=== PATIENT | female | born 1935 | race Caucasian/White ===

== ENCOUNTER 2024-02-12 07:56 | Inpatient (IN) | payer MEDICARE, OTHER ==
[2024-02-12] VITALS (29 sets, daily range): BP systolic 75–132; BP diastolic 59–97
[~2024-02-12] VITALS: Ht 165.1 cm; Wt 86.8 kg
[2024-02-12] MEDS ORDERED: OXYBUTYNIN CHLOR5 MG PO (08:11)
[2024-02-12] MEDS ORDERED: CEFTRIAXONE/SODIUM CHLORIDE 2 GM/100 ML PIGGYBACK IV ONE (08:15)
[2024-02-12] MEDS ORDERED: SODIUM CHLORIDE 0.9% 1,000 ML IV ONE ×2 (08:15→08:30)
[2024-02-12 08:26] LABS: BASOPHILS 0.4 % (0-2); EOSINOPHILS 2.5 % (0-6); HEMATOCRIT 41.9 % (35.0-50.0); LYMPHOCYTES 18.1 % (24-44); MCH 30.7 (27-36); MCHC 33.5 g/dl (30-36); MCV 91.8 fl (81-99); MONOCYTES 5.9 % (0-12); NEUTROPHILS 73.1 % (39-80); PLATELET COUNT 177 K/uL (140-440); RBC 4.57 M/ul (4.3-5.7); RDW 13.6 (10.5-15.0)
[2024-02-12 08:27] LABS: BILIRUBIN, URINE NEGATIVE (negative); BLOOD/HGB, URINE NEGATIVE (Negative); KETONE, URINE TRACE (Negative); LEUK ESTERASE, URINE NEGATIVE (negative); NITRITE, URINE NEGATIVE (negative); PH, URINE 6.5 (5-7)
[2024-02-12] MEDS ORDERED: LORazepam 2 MG/ML VIAL IV ONE ×2 (08:30→09:30)
[2024-02-12] MEDS ORDERED: NOREPINEPHRINE BITARTRATE 250 ML IV SCH (08:30)
[2024-02-12 08:41] LABS: ALBUMIN 3.5 g/dL (3.4-5.0); ALBUMIN/GLOBULIN RATIO 0.97 (1.1-2.4); BILIRUBIN, TOTAL 0.8 ng/dL (0.2-1.0); BUN/CREATININE RATIO 11.76 (6.0-28.6); CALCIUM 9.5 mg/dL (8.5-10.1); CREATININE, SERUM 1.7 mg/dL (0.55-1.02); PROTEIN, TOTAL 7.1 g/dL (6.4-8.2)
[2024-02-12 08:45] LABS: LACTIC ACID, BLOOD 3.4 mmol/L (0.4-2.0)
[2024-02-12 09:38] LABS: INFLUENZA B NAA NEGATIVE (NEGATIVE); RESPIRATORY SYNCYTIAL VIR NAA NEGATIVE (NEGATIVE)
[2024-02-12] MEDS ORDERED: fentaNYL citrate 100 MCG/2 ML VIAL IV PRN (10:00)
[2024-02-12] MEDS ORDERED: SODIUM CHLORIDE 0.9% 1,000 ML IV SCH ×2 (12:00→12:30)
[2024-02-12] MEDS ORDERED: IBLOOD GLUCOSE TEST STRIP 1 EA TEST XX PRN (12:30)
[2024-02-12] MEDS ORDERED: ondansetron HCL 4 MG/2 ML VIAL IV PRN (12:30)
[2024-02-12] MEDS ORDERED: DEXTROSE 5% 1,000 ML IV PRN (12:30)
[2024-02-12] MEDS ORDERED: ACETAMINOPHEN 325 MG TAB PO PRN (12:30)
[2024-02-12] MEDS ORDERED: DEXTROSE 50% 50 ML SYR IV PRN ×2 (12:30)
[2024-02-12] MEDS ORDERED: GLUCAGON,HUMAN RECOMBINANT 1 MG/ML VIAL SUB-Q PRN (12:30)
[2024-02-12] MEDS ORDERED: LIDOCAINE 2% VISCOUS 6 ML SYR TOP ONE (13:30)
--- NOTE | 2024-02-12 13:30 | NUR ---
PATIENT ARRIVED TO THE CCU ROOM 128. PATIENT VERY AGITATED AND ARRIVED IN RESTRAINTS. PER MD WILL RESUME RESTRAINTS. PATIENT ON LEVOPHED GTT FOR BP SUPPORT.
[2024-02-12] MEDS ORDERED: HEParin SOD (PORCINE) 5,000 UNIT/ML VIAL IV ONE ×2 (14:00→17:00)
[2024-02-12] MEDS ORDERED: HEPARIN SOD,PORK IN 0.45% NACL 500 ML IV SCH ×2 (14:00→17:00)
--- NOTE | 2024-02-12 14:22 | NUR ---
medications reconciled
[2024-02-12 14:30] LABS: BASOPHILS 0.1 % (0-2); EOSINOPHILS 0.1 % (0-6); HEMATOCRIT 38.8 % (35.0-50.0); HEMOGLOBIN 12.8 g/dL (12.0-18.0); LYMPHOCYTES 4.7 % (24-44); MCH 30.6 (27-36); MCV 92.6 fl (81-99); MONOCYTES 4.8 % (0-12); NEUTROPHILS 90.3 % (39-80); PLATELET COUNT 178 K/uL (140-440); RBC 4.19 M/ul (4.3-5.7); RDW 13.3 (10.5-15.0)
--- NOTE | 2024-02-12 14:30 | NUR ---
THIS RN HAS ZEUS IN AT THE BEDSIDE AND UNABLE TO LEAVE SINCE ADMISSION. PATIENT IS VERY RESTLESS AND AGITATED. PATIENT TRYING TO CLIMB OUT OF BED, PULL AT TUBES, WIRES, AND BELONGINGS. HAMILTON CATHETER PLACED D/T PATIENT HAVING NO URINE OUTPUT AND BLADDER SCAN COMPLETE WITH 388 PRESENT IN BLADDER. WHEN HAMILTON PLACED IT WAS 325 EMPTIED. HAMILTNO TEMP PROBE WAS PLACED D/T PATIENTS TEMP BEING 96 TEMPORALLY ON ARRIVAL AND UNABLE TO GET AXILLARY TEMP. CORE TEMP NOTED TO BE 95.7. BEAR HUGGER PLACED UNDER PATIENTS SHEET. WARM BLANKET APPLIED. DIFFICULT TO TRY TO KEEP WARM BECAUSE PATIENT CONTINUOUSLY PULLS ALL BLANKETS AND GOWN OFF. PATIENT IS NOT ABLE TO FOLLWO COMMANDS. PATIENT STATES "HELP ME". REORIENTED PATIENT MULTIPLE TIMES WITH PATIENT UNABLE TO FOLLOW COMMANDS. PATIENTS IV IS NOW LEAKING A TTHIS TIME. PAUSED IV FLUIDS. WILL ATTEMPTS NEW IV.
[2024-02-12 14:37] LABS: PARTIAL THROMBOPLASTIN TIME 27.2 Sec (22.9-41.3)
[2024-02-12 14:38] LABS: INR 1.22 (0.80-1.30); PROTIME 14.6 Sec (11.2-14.2)
--- NOTE | 2024-02-12 15:30 | NUR ---
THIS RN BACK FROM BREAK AND PATIENT IS VERY RESTLESS WITH MULTIPLE STAFF AT THE BEDSIDE TO PROVIDED SAFETY FOR PATIENT. PATIENT AGITATED AND RESTLESS TRYIGN TO PULL AT STUFF AND GET OUT OF BED. MD WAS NOTIFIED AND AT THE BEDSIDE. NEW ORDERS FOR PRECEDEX GTT. PATIENT HAS NEW IV IN LEFT UPPER ARM. PATIENTS PRIOR IV LEAKING AND DCD AT THIS TIME. PATIENT DOES NOT FOLLOW ANY COMMANDS. PATIENT AGITATED AND CONFUSED. AWAITING ARRIVAL OF PATIETNS FAMILY.
--- NOTE | 2024-02-12 15:35 | NUR ---
PATIENT STARTED TO DFRY HEAVE. PRN ZOFRAN WAS GIVEN AT THAT TIME. PATIENT AWAKE AND TRYING TO PULL AT TUBES/ WIRES AND GET OUT OF BED. PATIENT REMAINS WITH RESTRAINTS FOR SAFETY. MULTIPLE STAFF HAD HAD TO BE AT PATIENTS BEDSIDE TO ASSIST WITH CARES. MD UPDATED THAT PATIENT LOST IV ACESS AGAIN D/T LEAKING SITES. HELD HEAPRIN BOLUS AND INFUSION AT THIS TIME. WILL WAIT FOR 1600 LABS AND REEVALUTE AT THAT TIME. PATIENT HAS LOST MULTIPLE IVS DT LEAKING AND PATIENT PULLING IVS. AWAITING PATIETNS FAMILY TO ARRIVE FOR FURTHER PLAN OF CARE.
--- NOTE | 2024-02-12 16:49 | NUR ---
MD UPDATED ON PATIENT CRITICAL LABS AND NEW ORDER PLACED FOR EKG. MD WILL CALL AND UPDATE PATIENTS FAMILY AND ADRESS PLAN OF CARE. PER MD CAN START HEPARIN BOLUS AND GTT AT THIS TIME.
[2024-02-12] MEDS ORDERED: INSULIN LISPRO 100 UNIT/ML ML SUB-Q SCH (17:00)
[2024-02-12] MEDS ORDERED: IBLOOD GLUCOSE TEST STRIP 1 EA TEST VI SCH (17:00)
--- NOTE | 2024-02-12 17:56 | NUR ---
PATIENTS SON KAL ARRIVED AND UPDATED ON PLAN OF CARE WITH THIS RN AND MD VASQUEZ. PATIENT CURRENTLY ON NONREBREATHER MASK AT 15L. PATIENT ON LEVOPHED, PRECEDEX, AND HEPARIN GTT. PATIENTS SON IN AT THE BEDSIDE. ADVANCE DIRECTIVE COPIED AND PLACED IN PATIENTS CHART.
--- NOTE | 2024-02-12 19:35 | NUR ---
CALLED MD VASQUEZ AND ROSEMARIE THAT PATIENTS SON KAL WAS ASKING ABOUT COMFORT MEASURES, BUT STAYING THE CURRENT COURSE UNTIL HIS BROTHERS CAN MAKE IT IN THE AM. PATIENTS SON ASKED IF SHE WAS NOT ON THE CURRENT MEDICATIONS THAT SHE IS RECIEVING IF SHE WOULD PASS. EDUCATED HIM OF HOW THE NOREPINEPHRINE AND OXYGEN ARE WORKING FOR HER. PATIENT HAS HAD A DIFFICULT TIME MAINTAINING HER AIRWAY AT TIMES. PATIENT IS CURRENTLY REQUIRING NONREBREATHER TO MAINTIN SPO2 >90%. ALSO UPDATED THAT PATIENTS URINE IS DECREASED AT THIS TIME. MD WILL BE DOWN TO TALK WITH PATIENTS FAMILY.
--- NOTE | 2024-02-12 20:24 | NUR ---
REPORT RECEIVED FROM VIOLETTA FREY. BEDSIDE PUMP/INFUSION/RESTRAINT HAND OFF COMPLETED. PATIENT SNORING, REPOSITIONED AND PARTIAL LINEN CHANGE COMPLETED. SON KAL AT BEDSIDE. DR. MORALES IN AND UPDATED HIM ON POC. PATIENT ATTEMPTING TO PULL AT RESTRAINTS. PRECEDEX INCREASED TO 0.8 PER FLOWSHEET.
[2024-02-12] MEDS ORDERED: ATROPINE SULFATE 1% OPTH DROPS SL PRN (21:30)
[2024-02-12] MEDS ORDERED: ARTIFICIAL TEARS 15 ML BTL OU PRN (21:30)
--- NOTE | 2024-02-12 22:23 | NUR ---
CATHETER CARE COMPLETED. PATIENT MINIMALLY RESPONSIVE TO CARES. ATTEMPTS TO PULL AT RESTRAINTS BUT CALMS EASILY. HAMILTON CATHETER OUTPUT 15ML. REPOSITIONED FOR COMFORT. IV LINES REMAIN PATENT. PATIENT DOES NOT OPEN EYES TO NAME OR CARES AT THIS TIME.
--- NOTE | 2024-02-12 23:02 | EKG ---
[facility] [address] [place], [place] [address] Signed Sinus tachycardia Left axis deviation Right bundle branch block Inferior infarct , age undetermined Abnormal ECG No previous ECGs available Confirmed by Darnell Morales MD () on 02/12/2024 11:01:55 PM Electronically Signed By: DARNELL MORALES MD 02/12/242301 PATIENT NAME: ОЛЬГА DIAS Electrocardiogram DATE OF : [birth year] PHYSICIAN: DARNELL MORALES MD REPORT #: [id number] REPORT IS CONFIDENTIAL AND NOT TO BE RELEASED WITHOUT AUTHORIZATION
--- NOTE | 2024-02-12 23:04 | EKG ---
[facility] [address] [facility] [place] [address] Signed Normal sinus rhythm Inferior infarct (cited on or before 12-FEB-2024) Cannot rule out Anterior infarct , age undetermined Abnormal ECG When compared with ECG of 12-FEB-2024 08:03, Right bundle branch block is no longer present Minimal criteria for Anterior infarct are now present Confirmed by Darnell Morales MD () on 02/12/2024 11:04:01 PM Electronically Signed By: DARNELL MORALES MD 02/12/242303 PATIENT NAME: ОЛЬГА DIAS Electrocardiogram DATE OF : [birth year] PHYSICIAN: DARNELL MORALES MD REPORT #: [id number] REPORT IS CONFIDENTIAL AND NOT TO BE RELEASED WITHOUT AUTHORIZATION
--- NOTE | 2024-02-12 23:06 | NUR ---
LAB IN TO DRAW PTT, BLOOD OBTAINED AFTER SECOND POKE. PATIENT DID NOT RESPOND TO EITHER ATTEMPT. PRECEDEX GTT TITRATED DOWN TO 0.6.
[2024-02-12] MEDS ORDERED: SCOPOLAMINE 1 MG/3 DAYS PATCH 1 EACH TDSY TD SCH (23:30)
--- NOTE | 2024-02-12 23:44 | NUR ---
PTT RESULTED AT 180.2. PER HEPARIN FLOWSHEET, NO BOLUS, STOP INFUSION FOR 60 MIN. INFUSION PAUSED. RT IN ROOM TO ASSIST WITH SPO2 READING. EXTREMITIES COOL, WRAPPED UNDER WARM BLANKETS. O2 SAT READING 96% ON 15L NRB AND 2L NC.
--- NOTE | 2024-02-12 23:52 | NUR ---
PATIENT SLIGHTLY GRIMACING SHE ATTEMPTS TO PULL AGAINST RESTRAINTS. PRECEDEX TITRATION CONTINUES.
[2024-02-13] VITALS (35 sets, daily range): BP systolic 71–133; BP diastolic 55–92
--- NOTE | 2024-02-13 00:11 | NUR ---
BOTH PIV FLUSHED AND HAVE + BLOOD RETURN. ASSESSMENT CHARTED. PATIENT RESTLESS DURING ASSESSMENT BUT EASILY CALMS. O2 SAT 98% ON 15L NRB. WARM BLANKET PROVIDED.
--- NOTE | 2024-02-13 00:33 | NUR ---
PATIENT ATTEMPTING TO PULL AT RESTRAINTS. BRIEFLY OPENS EYES AND STATES "HELP ME". PRECEDEX TITRATED PER FLOWSHEET.
--- NOTE | 2024-02-13 00:50 | NUR ---
HEPARIN RESTARTED AFTER 60 MIN INFUSION PAUSE PER HEPARIN FLOW SHEET. PTT LEVEL ENTERED FOR 0700 DRAW.
--- NOTE | 2024-02-13 00:57 | NUR ---
PATIENT'S RR 22 HOWEVER BREATHING CONTINUES TO APPEAR LABORED. REVIEWED WITH DR. MORALES. ORDER RECEIVED FOR MORPHINE 1-2MG Q1H PRN FOR AIR HUNGER. UPDATED ON UO AND CURRENT RATE OF PRECEDEX.
[2024-02-13] MEDS ORDERED: MORPHINE SULFATE 4 MG/ML VIAL IV PRN (01:00)
--- NOTE | 2024-02-13 02:31 | NUR ---
PATIENT REPOSITIONED FOR COMFORT. RESTRAINTS RELEASED AND PASSIVE ROM COMPLETED ON BUE. RESTRAINTS REPLACED. PATIENT PULLS AT RESTRAINTS AND LIFTS HER HEAD BUT IS NON-VERBAL, SLIGHT BROW FURROWING NOTED. PILLOW SUPPORT PROVIDED. PIV TO LUE FLUSHED WITH + BLOOD RETURN.
--- NOTE | 2024-02-13 02:49 | NUR ---
MORPHINE GIVEN FOR AIR HUNGER PER EMAR. ORAL CARE ATTEMPTED BUT PATIENT BIT AT SUCTION AND ORAL SWABS. DOES NOT OPEN EYES TO INTERVENTIONS BUT MOVED HER HEAD AWAY FROM ORAL CARE AND ATTEMPTED TO PULL AT RESTRAINTS. EASILY CALMS.
--- NOTE | 2024-02-13 02:56 | NUR ---
PATIENT SWITCHED TO OXYMASK AT 8L. O2 SAT 94%, RR 19.
--- NOTE | 2024-02-13 03:00 | NUR ---
PRECEDEX TITRATED PER MEDICATION FLOWSHEET. PATIENT ATTEMPTING TO SIT UP AND PULLING AT RESTRAINTS.
--- NOTE | 2024-02-13 03:27 | NUR ---
PATIENT BACK ON NRB AT 15L. PATIENT APPEARS ANXIOUS, ATTEMPTS TO PULL AT RESTRAINGS AND SIT UP IN BED. RR INCREASED TO 28-30. FENTANYL GIVEN PER EMAR.
--- NOTE | 2024-02-13 03:46 | NUR ---
PATIENT APPEARS CALM AT THIS TIME. RR 21 HOWEVER BREATHING APPEARS LABORED. FACIAL EXPRESSION RELAXED.
--- NOTE | 2024-02-13 04:13 | NUR ---
BOTH PIVS FLUSHED WITH BLOOD RETURN NOTED. PATIENT APPEARS MORE RELAXED, BREATHING IS LESS LABORED AND NOW MORE SHALLOW. PATIENT OCCASIONALLY TRIES TO SPEAK BUT IT IS UNINTELLIGIBLE. AT THIS TIME IS NOT ATTEMPTING TO PULL AT RESTRAINTS OR ATTEMPTING TO SIT UP. HEPARIN GTT CONTINUES. NOREPINEPHRINE CONTINUING TO TITRATE THROUGH SHIFT, CURRENTLY AT 5MCG/MIN. PRECEDEX AT 1.1MCG/KG/HR.
--- NOTE | 2024-02-13 04:28 | NUR ---
UPDATED DR. MORALES ON PATIENT STATUS PATIENT CONTINUES TO MOAN AND SPEAK UNITELLIGIBLY WHILE APPEARING ANXIOUS. REVIEWED CURRENT PRECEDEX TITRATION AND RESPONSE TO MORPHINE AND FENTANYL PREVIOUSLY ADMINISTERED. PRECEDEX TITRATION TO CONTINUE WELL FENTANYL PRN ORDERED, ORDER RECEIVED FOR ATIVAN FOR ANXIETY, RESTLESSNESS IF THEY CONTINUE IN SPITE OF PRECEDEX AND FENTANYL.
[2024-02-13] MEDS ORDERED: LORazepam 2 MG/ML VIAL IV PRN ×2 (04:45→16:30)
--- NOTE | 2024-02-13 05:23 | NUR ---
PATIENT APPEARS RELAXED AT THIS TIME. REPOSITIONED FOR COMFORT. O2 SAT IMPROVED WITH REPOSITIONING TO 97% ON 15L NRB.
--- NOTE | 2024-02-13 06:37 | NUR ---
PATIENT'S SON KAL IN ROOM. UPDATED ON CURRENT STATUS AND EVENTS OVERNIGHT.
--- NOTE | 2024-02-13 07:30 | NUR ---
REPORT FROM SUPPLY CATALOGUER LYNDA - BEDSIDE CHECK OF PUMPS X4 WNL. LAB IN FOR BLOOD DRAW FOR HEPARIN. PT WITH ARM RESTRAINTS X2 RESTLESS AND AGITATED, EYES CLOSED, NON VERBAL - BASE LINE DEMENTIA. SON IN ROOM. HAMILTON DRAINING DARK URINE, URINE TEMP 99.2, HR 74, OX 15L NON REBREATHER MASK.
--- NOTE | 2024-02-13 08:59 | NUR ---
DR MORALES IN ROOM - ORDER TO INCREASE SEDATION. TRY ATIVAN. EXPLAINED BP CYCLE AND TITRATION OF BP MED TO KEEP BP WNL FOR PT. SHE IS AGITATED WITH BP CUFF CYCLE.
[2024-02-13] MEDS ORDERED: ENOXAPARIN SODIUM 40 MG/0.4 ML SYR SUB-Q SCH (09:00)
--- NOTE | 2024-02-13 09:14 | NUR ---
PT GIVEN IV ATIVAN PER DR MORALES ORDER/REQUEST. FAMILY AT SIDE, PT RESTLESS.
--- NOTE | 2024-02-13 09:30 | NUR ---
RESULTS OF AM LAB FOR PTT - 129 - PER STEMI PROTOCOL NO BOLUS SOPT INFUSION FOR 60 MIN, - TIMER SET - LABS RE ORDERED FOR 6 HRS FROM RESTART TIME OF 1030. DISCUSSED WITH CODY SHIPLEY. RESUME RATE AT REDUCED BY 2 UNITS/KG/HR. =7 UNITS/KG/HR.
--- NOTE | 2024-02-13 11:05 | NUR ---
rt called to eval pt, nrb mask all the way up and sats are 85-85%, pt good wave form on pulse ox. resting in bed with son at side.
--- NOTE | 2024-02-13 11:18 | NUR ---
RT IN ROOM TO VISIT WITH THIS RN ABOUT O2 NEEDS. PT SON AGREES SHE WOULD NOT LIKE BIPAP OR CPAP AT THIS TIME, NRM TURNED UP ALL THE WAY SATS 89-90% FLUSH. PT RESTING WITH AGONAL BREATHS AT 19 RATE, EYES CLOSED. PASTORAL CARE BLANKET PROVIDED TO PT AND OFFERED DRINKS TO PT SON. IV SITES BOTH WNL AND HAMILTON WITH SCANT DARK URINE. ORAL CARE DONE.
--- NOTE | 2024-02-13 11:52 | NUR ---
VISITED DURING SPIRITUAL CARE ROUNDS. PT SUPPORTED BY SON IN ROOM. BOTH APPEARED TO BE SLEEPING. DID NOT DISTURB. PROVIDED PRAYER.
[2024-02-13] MEDS ORDERED: PHARMACY RENAL DOSE ADJUSTMENT 1 DOSE MISC PO SCH (12:00)
--- NOTE | 2024-02-13 12:45 | NUR ---
UR CLINICAL REVIEW: 2 MN FOR VERSALUS-MEET INPATIENT CRITERIA FOR CARDIOGENIC SHOCK MEDICARE INPT 02/12/24 @ 1222 ORDER MATCHES REG NO AUTH REQUIRED PER MEDICARE GUIDELINES DISCHARGE PENDING FURTHER FAMILY CARE CONFERENCES
--- NOTE | 2024-02-13 13:50 | NUR ---
Arrived in CCU, Dr. Smith discussing end of life care with family. Treatment will be stopped as all family members are in agreement. I will not complete assessment as feels pt will pass soon.
--- NOTE | 2024-02-13 14:00 | NUR ---
pt son mily and family arrive to pt bedside, pt somulent - precidex decreased to 0.9/ no urine output. iv wnl x2 sites and 4 fluids. hr 72. educated family on lines, medications, and wellington. pt non verbal - pastoral care here now.
--- NOTE | 2024-02-13 14:11 | NUR ---
VISITED DURING SPIRITUAL CARE ROUNDS. PT SUPPORTED BY FAMILY IN ROOM. NO IMMEDIATE NEEDS. CLIENT INTEGRATION MANAGER PROVIDED SUPPORTIVE PRESENCE, HOSPITALITY, PRAYER. FAMILY EXPRESSED APPRECIATION, PEACE.
--- NOTE | 2024-02-13 15:00 | NUR ---
all restraints removed, family educated. line of site to rn, pt lines moved away from hands and family holding her hand at this time.
--- NOTE | 2024-02-13 15:22 | NUR ---
IN ROOM WITH ALL SONS X3 EXPLAIN PLAN OF CARE AND POSSIBILITIES, EXPLAIN COMFORT AND CARE FOR DAY.
--- NOTE | 2024-02-13 15:26 | NUR ---
TURNED OFF LEVOPHED DRIP PER FAMILY AND DR ORDER. NO SIKH AFFILIATION NOTED PER FAMILY.
--- NOTE | 2024-02-13 15:49 | NUR ---
MS GIVEN, SEE MAR FOR SOB EXERTION AND WORK OF BREATHING, MAX FLOW ON NON RE BREATHER MASK. ORAL CARE DONE, PT AGITATED WITH CARES, REPOSITIONED IN BED - RESTRAINTS ARE OFF, ROM WITH ARMS. FAMILY AT BEDSIDE. COMFORT CARE. PRECIDEX DRIP ON AT 0.8 MCG/KG/HR. PT KEEPS EYES CLOSED WITH GRIMMACE. HAMILTON NO CHANGE.
--- NOTE | 2024-02-13 17:02 | NUR ---
2 person assist for linen change and bed bath, skin wnl. wellington manipulated to drain dark celeste urine, pt restless with turn - ativan given after to help with comfort. family back in room thankful for cares. oral care and wellington care done. hr 65, rr 21, oxygen 89% 15L nrb mask. temp 38.1 wellington. call light in reach and visible to rn.
--- NOTE | 2024-02-13 18:23 | NUR ---
pt repositioned, son mily at side, medicated with ms for sob and discomfort with movement. wellington draining scant urine. moved oxygen to nc to decrease pressure to nose - son aware of comfort measure.
--- NOTE | 2024-02-13 18:45 | NUR ---
pt son mily asked for pt earings x2 and this rn assisted in giving them to son mily. attempted to give rings x4 yellow - did not remove. son took photo and said ok to send to home. dr cortez here at 1858. pronounced and supervisor special education aware as well as pastoral care. pt no heart rate and no resp. visible.
--- NOTE | 2024-02-13 20:47 | NUR ---
[facility] PICKED UP PATIENT. OUT AT 2044. ADMITTING NOTIFIED OF TOD AND OUT TIME FOR HOME.
[2024-02-15] MEDS ORDERED: SCOPOLAMINE 1 MG/3 DAYS PATCH 1 EACH TDSY TD SCH (09:00)
== END 2024-02-13 18:47 ==
LOC: ED 07:56 → CCU 12:25
PROVIDERS: Emergency Medicine; ADMIT Family Medicine; ATTEND Family Medicine
PROC: 3E03329 Introduction of Other Anti-infective into Peripheral Vein, Percutaneous Approach (ICD-10-PCS; principal; 2024-02-12)
PROC: 3E033XZ Introduction of Vasopressor into Peripheral Vein, Percutaneous Approach (ICD-10-PCS; 2024-02-12)
DX: I21.4 Non-ST elevation (NSTEMI) myocardial infarction (principal); J96.01 Acute respiratory failure with hypoxia; E87.20 Acidosis, unspecified; F03.A4 Unspecified dementia, mild, with anxiety; F03.A11 Unspecified dementia, mild, with agitation; Z66 Do not resuscitate; Z51.5 Encounter for palliative care; R57.0 Cardiogenic shock; I45.10 Unspecified right bundle-branch block; Z79.899 Other long term (current) drug therapy; E88.819 Insulin resistance, unspecified
CPT/HCPCS: 36415; 36592; 51701; 71045; 80053; 81003; 83605; 84484; 85025; 85610; 85730; 87502; 93005; 93010; 99285-25; J0696; J1644; J1650; J2060; J2270; J2405; J3010; J7030; U0002